=== PATIENT | male | born 1955 | race Caucasian/White ===

== ENCOUNTER 2017-11-19 08:11 | Emergency (ER) | payer BC ==
[~2017-11-19 08:11] MED LIST: ASPIRIN CHEWABL81 M2 PO; ASPIRIN E.C.81 M1 PO; AUGMENTIN875 MG PO; BACTRIM,SEPT1 TABLET PO; GLIPIZIDE5 M1 PO; GLUCOPHAGE500 MG PO; HYDROCODON-ACE1 EAC7 PO; LOW DOSE ASPIRI81 M1 PO; METFORMIN HCL500 MG PO; METOPROLOL TART50 MG PO; PRAVASTATIN SOD40 MG PO; PROTONIX40 MG PO; PT UNSURE OF MEDS; VICODIN 5-3001 EACH PO; VYVANSE20 MG PO; Vyvanse PO; ZESTRIL,PRINIVI10 MG PO; Zestril,Prinivil PO
== END 2017-11-19 08:12 ==
LOC: EME 08:11
PROC: 5A12012 Performance of Cardiac Output, Single, Manual (ICD-10-PCS; principal; 2017-11-19)
DX: I46.9 Cardiac arrest, cause unspecified (principal); I10 Essential (primary) hypertension; Z88.5 Allergy status to narcotic agent
CPT/HCPCS: 92950; J2310